=== PATIENT | male | born 1985 | race Native Hawaiian/Other Pacific Islander ===

== ENCOUNTER 2018-05-29 08:25 | Emergency (ER) | payer OTHER ==
[~2018-05-29] VITALS: Ht 185.4 cm; Wt 149.7 kg
[2018-05-29 08:25] VITALS: TEMP 97.3
[2018-05-29] MEDS ORDERED: DIVALPROEX500 M1 PO (08:48)
[2018-05-29] MEDS ORDERED: HYDROXYZ HCL50 MG PO (08:49)
[2018-05-29] MEDS ORDERED: ARIPIPRAZOLE OD15 MG PO (08:50)
[2018-05-29 09:23] VITALS: BP 130/81
== END 2018-05-29 09:25 | disposition home or self-care (01) ==
LOC: ED 08:25
PROC: 0CQ0XZZ Repair Upper Lip, External Approach (ICD-10-PCS; principal; 2018-05-29)
DX: S01.511A Laceration without foreign body of lip, initial encounter (principal); Y04.0XXA Assault by unarmed brawl or fight, initial encounter
CPT/HCPCS: 99282